=== PATIENT | male | born 1975 | race Caucasian/White ===

== ENCOUNTER 2018-06-18 20:13 | Emergency (ER) | payer MEDICAID ==
[~2018-06-18] VITALS: Ht 195.6 cm; Wt 90.9 kg
[2018-06-18 20:16] VITALS: BP 122/77
[2018-06-18] MEDS ORDERED: SULF1TAB49 PO (22:12)
[2018-06-18] MEDS ORDERED: sulfamethoxazole/trimethoprim DS (800/160mg) tablet PO ONE (22:15)
[2018-06-18 22:31] LABS: CRYSTAL ID, BODY FLD NONE SEEN (NONE SEEN)
== END 2018-06-18 22:28 | disposition home or self-care (01) ==
LOC: ER 20:14
DX: L02.414 Cutaneous abscess of left upper limb (principal); Z88.2 Allergy status to sulfonamides; Z88.1 Allergy status to other antibiotic agents
CPT/HCPCS: 87070; 87077; 87186; 89060; 99284

== ENCOUNTER 2019-05-24 02:06 | Emergency (ER) | payer MEDICAID ==
[~2019-05-24] VITALS: Ht 195.6 cm; Wt 78.2 kg
[2019-05-24] MEDS ORDERED: ketorolac trometh. 30mg/ml inj. IM ONE (02:55)
--- NOTE | 2019-05-24 02:59 | NUR ---
PT AMBULATED TO XRAY WITH STEADY GAIT WITH PLASTIC BLOCK BOILER RELINER
[2019-05-24] MEDS ORDERED: ACET-3068 PO (03:18)
--- NOTE | 2019-05-24 03:59 | NUR ---
INSTRUCTED PATIENT ON HOW TO USE THE IS AND THE IMPORTANCE OF ITS USE
[2019-05-24 04:01] VITALS: BP 114/72
== END 2019-05-24 04:00 | disposition home or self-care (01) ==
LOC: ER 02:06
DX: R07.81 Pleurodynia (principal); J45.909 Unspecified asthma, uncomplicated; F17.200 Nicotine dependence, unspecified, uncomplicated; Z79.899 Other long term (current) drug therapy
CPT/HCPCS: 71046; 96372; 99283; J1885

== ENCOUNTER 2019-07-01 17:48 | Emergency (ER) | payer MEDICAID ==
[~2019-07-01] VITALS: Ht 198.1 cm; Wt 90.0 kg
[2019-07-01] MEDS ORDERED: LIDOcaine 1% w/epiNEPHrine 1:200,000 30ml vial IM ONE (18:15)
[2019-07-01] MEDS ORDERED: TETanus/Pertussis (Acell)/Diphther VAC/PF (Tdap-Adult) 0.5ml syringe IM ONE (18:25)
[2019-07-01] MEDS ORDERED: LIDOcaine 1% w/EPI 1:100,000 30ml vial (MDV) SQ ONE (18:30)
[2019-07-01 19:00] VITALS: BP 133/71
--- NOTE | 2019-07-01 19:09 | NUR ---
PATIENT IS CURRENTLY SOAKING HIS HAND IN BETADINE WATER PER ER MD
--- NOTE | 2019-07-01 19:15 | NUR ---
IN ROOM AND SUURED FINGER
[2019-07-01] MEDS ORDERED: CEPH500C5 PO (19:54)
== END 2019-07-01 20:22 | disposition home or self-care (01) ==
LOC: ER 17:49
DX: S61.211A Laceration without foreign body of left index finger without damage to nail, initial encounter (principal); J45.909 Unspecified asthma, uncomplicated; F12.90 Cannabis use, unspecified, uncomplicated; F17.200 Nicotine dependence, unspecified, uncomplicated; Z79.2 Long term (current) use of antibiotics; W29.8XXA Contact with other powered hand tools and household machinery, initial encounter; Y93.89 Activity, other specified; Y92.89 Other specified places as the place of occurrence of the external cause; Y99.8 Other external cause status
CPT/HCPCS: 12001; 73140; 90471; 99283

== ENCOUNTER 2020-05-23 17:00 | Emergency (ER) | payer MEDICAID, OTHER ==
[~2020-05-23] VITALS: Ht 195.6 cm; Wt 81.0 kg
--- NOTE | 2020-05-23 18:40 | NUR ---
TAKING OVER CARE WHILE PRIMARY RN IS ON LUNCH; WILL CONTINUE TO MONITOR.
[2020-05-23] MEDS ORDERED: TETanus/Pertussis (Acell)/Diphther VAC/PF (Tdap-Adult) 0.5ml syringe IMVAC ONE (19:35)
[2020-05-23 20:43] VITALS: BP 114/88
== END 2020-05-23 20:47 | disposition home or self-care (01) ==
LOC: ER 17:02
DX: S06.0X1A Concussion with loss of consciousness of 30 minutes or less, initial encounter (principal); R51 Headache; R42 Dizziness and giddiness; J45.909 Unspecified asthma, uncomplicated; F17.210 Nicotine dependence, cigarettes, uncomplicated; F12.90 Cannabis use, unspecified, uncomplicated; Z72.89 Other problems related to lifestyle; V98.8XXA Other specified transport accidents, initial encounter; Y93.01 Activity, walking, marching and hiking; Y92.89 Other specified places as the place of occurrence of the external cause; Y99.8 Other external cause status
CPT/HCPCS: 70450; 90471; 90715; 99284

== ENCOUNTER 2021-07-11 17:28 | Emergency (ER) | payer MEDICAID ==
[~2021-07-11] VITALS: Ht 198.1 cm; Wt 90.9 kg
[2021-07-11 17:33] VITALS: BP 120/75
[2021-07-11] MEDS ORDERED: proparacaine 0.5% ophthalmic drops 15ml EACHEYE ONE (17:40)
[2021-07-11] MEDS ORDERED: HYDR-3965 PO (17:47)
[2021-07-11] MEDS ORDERED: ERYT1OIN6 RIGHTEYE (17:47)
[2021-07-11] MEDS ORDERED: erythromycin ophthalmic ointment 1gm tube RIGHTEYE ONE (17:50)
[2021-07-11] MEDS ORDERED: OFLO5DRO RIGHTEYE (18:25)
[2021-07-11] MEDS ORDERED: ofloxacin 0.33% 5ml ophthalmic drops RIGHTEYE SCH (20:00)
== END 2021-07-11 18:56 | disposition home or self-care (01) ==
LOC: ER 17:28
DX: T15.01XA Foreign body in cornea, right eye, initial encounter (principal); H16.001 Unspecified corneal ulcer, right eye; H57.11 Ocular pain, right eye; F12.90 Cannabis use, unspecified, uncomplicated; Z72.89 Other problems related to lifestyle; Z79.899 Other long term (current) drug therapy; X58.XXXA Exposure to other specified factors, initial encounter; Y93.89 Activity, other specified; Y92.89 Other specified places as the place of occurrence of the external cause; Y99.8 Other external cause status
CPT/HCPCS: 65220; 99284